=== PATIENT | female | born 1985 | race Asian ===

== ENCOUNTER 2020-05-14 18:49 | Emergency (ER) | payer MEDICAID ==
[~2020-05-14] VITALS: Ht 157.5 cm; Wt 101.8 kg
--- NOTE | 2020-05-14 19:27 | PHYS DOC ---
General Adult EDM: Chief Complaint: HEADACHE HPI: HPI: The history was obtained from the patient. Patient is a 34-year-old female with no reported PMH who presents with a chief complaint of headache. Patient states she is had a constant headache for the past 6 days. She states the headache started gradually. She states that headache is in the front of her head and throbbing in nature. States he had a headache like this once years ago when she was 19. She states he does not have any neck pain. Denies syncope. Denies acute vision or hearing changes. Does nurse photophobia. Denies phonophobia. Denies nausea or vomiting. Denies any weakness or numbness to the extremities. Denies any recent travel. Denies known exposure to coronavirus. Has tried Aleve at home and Excedrin with minimal relief. Denies any current or recent . Patient denies acute onset of headache reaching maximal intensity in under one hour. This is neither the worst headache that Patient has ever experienced, nor was the onset timed with exertional activity or trauma. Patient has not experienced any fever, unusual neck pain or stiffness, syncope, or near syncope. Patient denies numbness, tingling, or weakness of the extremities. Patient also denies personal history of intracranial hemorrhage (including SAH), aneurysm, or AV malformation. Review of Systems: Review of Systems: Constitutional: Denies fever or chills. [] Eyes: Denies change in visual acuity. [] HENT: Denies nasal congestion or sore throat. [] Respiratory: Denies cough or shortness of breath. [] Cardiovascular: Denies chest pain or edema. [] GI: Denies abdominal pain, nausea, vomiting, bloody stools or diarrhea. [] : Denies dysuria. [] Musculoskeletal: Denies back pain or joint pain. [] Integument: Denies rash. [] Neurologic: Positive for headache Endocrine: Denies polyuria or polydipsia. [] Lymphatic: Denies swollen glands. [] Psychiatric: Denies depression or anxiety. [] Heart Score: Risk Factors: Risk Factors: DM, Current or recent (<one month) smoker, HTN, HLP, family history of CAD, obesity. Risk Scores: Score 0 - 3: 2.5% MACE over next 6 weeks - Discharge Home Score 4 - 6: 20.3% MACE over next 6 weeks - Admit for Clinical Observation Score 7 - 10: 72.7% MACE over next 6 weeks - Early Invasive Strategies Allergies: Allergies: Allergies Coded Allergies Type Severity Reaction Last Updated Verified No Known Drug Allergies 05/14/20 No Physical Exam: PE: Constitutional: Well developed, well nourished, no acute distress, non-toxic appearance. [] HENT: Normocephalic, atraumatic, bilateral external ears normal, oropharynx moist, no oral exudates, nose normal. [] Eyes: PERRLA, EOMI, conjunctiva normal, no discharge. [] Neck: Normal range of motion, no tenderness, supple, no stridor. [] Cardiovascular:Heart rate regular rhythm, no murmur [] Lungs & Thorax: Bilateral breath sounds clear to auscultation [] Abdomen: soft, no tenderness, no masses, no pulsatile masses. [] Skin: Warm, dry, no erythema, no rash. [] Back: No tenderness, no CVA tenderness. [] Extremities: No tenderness, no cyanosis, no clubbing, ROM intact, no edema. [] Neurologic: Alert with intact cognitive function. No aphasia, dysarthria, or neglect. GCS 15. Pupils 3 mm briskly reactive b/l. No APD present. Cranial nerves 2-12 grossly intact; no facial asymmetry present, tongue midline, shoulder shrugging strength intact. Strength 5/5 and symmetric throughout. Light touch sensation intact throughout. Cerebellar testing appropriate without evidence of dysdiadochokinesia. DTR's 2+ in all 4 extremities. Negative pronator drift bilaterally. Gait normal Psychologic: Affect normal, judgement normal, mood normal. [] Current Patient Data: Labs: Laboratory Tests Test 05/14/20 19:24 05/14/20 19:53 Bedside Urine HCG, Qualitative Hcg negative White Blood Count 12.0 x10^3/uL Red Blood Count 4.81 x10^6/uL Hemoglobin 13.3 g/dL Hematocrit 39.9 % Mean Corpuscular Volume 83 fL Mean Corpuscular Hemoglobin 28 pg Mean Corpuscular Hemoglobin Concent 33 g/dL Red Cell Distribution Width 14.0 % Platelet Count 264 x10^3/uL Neutrophils (%) (Auto) 77 % Lymphocytes (%) (Auto) 12 % Monocytes (%) (Auto) 8 % Eosinophils (%) (Auto) 1 % Basophils (%) (Auto) 1 % Neutrophils # (Auto) 9.2 x10^3/uL Lymphocytes # (Auto) 1.5 x10^3/uL Monocytes # (Auto) 1.0 x10^3/uL Eosinophils # (Auto) 0.1 x10^3/uL Basophils # (Auto) 0.1 x10^3/uL Sodium Level 139 mmol/L Potassium Level 3.5 mmol/L Chloride Level 104 mmol/L Carbon Dioxide Level 28 mmol/L Anion Gap 7 Blood Urea Nitrogen 13 mg/dL Creatinine 0.8 mg/dL Estimated GFR (Cockcroft-Gault) 83.1 Glucose Level 104 mg/dL Calcium Level 8.5 mg/dL Current Medications Medications (Trade) Dose Ordered Sig/Michael Route PRN Reason Start Time Stop Time Status Last Admin Dose Admin Sodium Chloride 1,000 ml @ 1,000 mls/hr 1X ONCE IV 05/14/20 20:00 05/14/20 20:59 DC 05/14/20 19:52 Diphenhydramine HCl (Benadryl) 50 mg 1X ONCE IVP 05/14/20 20:00 05/14/20 20:01 DC 05/14/20 19:52 Metoclopramide HCl (Reglan Vial) 10 mg 1X ONCE IVP 05/14/20 19:30 05/14/20 19:31 DC 05/14/20 19:51 EKG: EKG: [] Radiology/Procedures: Radiology/Procedures: [][facility] [address] [place], [place] [id number] IMAGING REPORT Signed PATIENT: BEVERLY GARCÍA ACCOUNT: [id number] : 1985 LOCATION: ER AGE: 34 SEX: F EXAM STATUS: PRE ER ORD. PHYSICIAN: MAGO MAO DO REASON: headache PROCEDURE: CT HEAD WO CONTRAST Examination: CT HEAD WO CONTRAST History: Reason: headache Comparison/Correlation: None Findings: Axial images of the head were obtained without contrast. Coronal reformatted images provided. Lateral ventricles are small in size but symmetric. Normal stein-white matter differentiation. No intracranial hemorrhage, midline shift, or mass effect. Bony structures are unremarkable. Orbits are unremarkable. Impression: No suspicious process. Electronically signed by: Ulisses Granados MD (05/14/2020 8:06 PM) [facility] DICTATED and SIGNED BY: ULISSES GRANADOS MD DATE: 05/14/202005 Course & Med Decision Making: Course & Med Decision Making Pertinent Labs and Imaging studies reviewed. (See chart for details) [] Patient is a 34-year-old female presents with chief complaint of headache for the past several days. Initial vital signs unremarkable. Physical exam overall reassuring. Basic labs obtained unremarkable. CT imaging negative. Patient was given migraine medication and states she feels significantly better. She does note a history of previous migraines. On repeat examination her neurologic exam remained stable. Her vital signs remain stable including afebri le. She continues to have full range of motion of her head and neck without difficulty. Given the duration of her headache and because of my concern for possible subarachnoid hemorrhage and meningitis, I recommended that the patient allow us to perform a lumbar puncture (LP). We discussed the procedure itself, in addition to the risks and benefits of performing, as well as the risks of not performing an LP. Any and all questions were answered. Patient understands that I cannot exclude these entities without analysis of the patient's CSF and patient also understands that delay/failure to diagnose these entities could result in serious harm and possibly even . Despite this, the patient is still declining to have the LP performed. Patient appears to be clinically competent and has capacity to make this decision. As such, we treated the patient symptomatically and recommended outpatient management with a either a PCP or a neurologist, in the next 1-2 days. Patient is to return to our ED immediately if they change their mind, or if there is any worsening of their condition (especially if increasing pain, persistant vomiting, stroke-like symptoms, weakness, fever, paralysis, etc.). After my independent evaluation, my clinical opinion at this time is that they are stable for discharge. Yokasta Disclaimer: Yokasta Disclaimer: This electronic medical record was generated, in whole or in part, using a voice recognition dictation system. Departure Departure Impression: Primary Impression: Headache Qualified Codes: R51 - Headache Disposition: 01 HOME, SELF-CARE Condition: STABLE Patient Instructions: Migraine Headache Additional Instructions: Please follow-up with your primary care physician in the next 2 to 3 days. [facility] [address] [place] [address] [facility] [address] [place] [address] [facility] [address] [facility] [place] [address] [facility] [address] [place] [address] [facility] [address] [place] [address] [facility] [address] [place] [address] [facility] [address] [place] [address] [facility] [address] [place] [address] [facility] [address] [place] [address] [facility] [address] [place] [address] Justicifation of Admission Dx: Justifications for Admission: Justification of Admission Dx: N/A MAGO MAO DO May 14, 2020 19:26
[2020-05-14] MEDS ORDERED: METOCLOPRAMIDE HCL 10 MG/2 ML VIAL. IVP ONE (19:30)
[2020-05-14] MEDS ORDERED: IV NORMAL SALINE 1000ML BAG 1,000 ML IV ONE (20:00)
[2020-05-14] MEDS ORDERED: diphenhydrAMINE 50 MG/ML VIAL IVP ONE (20:00)
--- NOTE | 2020-05-14 20:08 | RAD ---
Examination: CT HEAD WO CONTRAST History: Reason: headache Comparison/Correlation: None Findings: Axial images of the head were obtained without contrast. Coronal reformatted images provided. Lateral ventricles are small in size but symmetric. Normal stein-white matter differentiation. No intracranial hemorrhage, midline shift, or mass effect. Bony structures are unremarkable. Orbits are unremarkable. Impression: No suspicious process. Electronically signed by: Ulisses Tom MD (05/14/2020 8:06 PM) [facility]
[2020-05-14 20:14] LABS: BASO # 0.1 x10^3/uL (0.0-0.2); BASO % 1 % (0-3); EOS # 0.1 x10^3/uL (0.0-0.7); EOS % 1 % (0-3); HEMATOCRIT 39.9 % (36.0-47.0); HEMOGLOBIN 13.3 g/dL (12.0-15.5); LYMPH # 1.5 x10^3/uL (1.0-4.8); LYMPH % 12 % (24-48); MEAN CORPUSCULAR HEMOGLOBIN 28 pg (25-35); MEAN CORPUSCULAR HGB CONC 33 g/dL (31-37); MEAN CORPUSCULAR VOLUME 83 fL (79-100); MONO % 8 % (0-9); NEUT # 9.2 x10^3/uL (1.8-7.7); NEUT % 77 % (31-73); PLATELET COUNT 264 x10^3/uL (140-400); RED BLOOD COUNT 4.81 x10^6/uL (3.50-5.40)
[2020-05-14 20:24] LABS: CALCIUM 8.5 mg/dL (8.5-10.1); CREATININE 0.8 mg/dL (0.6-1.0); GFR 83.1; POTASSIUM 3.5 mmol/L (3.5-5.1)
[2020-05-14 21:00] VITALS: BP 95/62
== END 2020-05-14 21:48 | disposition home or self-care (01) ==
LOC: ER 18:49
DX: R51 Headache (principal)
CPT/HCPCS: 36415; 70450; 80048; 81025; 85025; 96361; 96374; 96375; 99284; J1200; J2765; J7030

== ENCOUNTER 2020-05-18 08:57 | Emergency (ER) | payer MEDICAID ==
[~2020-05-18] VITALS: Ht 157.5 cm; Wt 101.8 kg
[2020-05-18] MEDS ORDERED: IV NORMAL SALINE 1000ML BAG 1,000 ML IV ONE (10:00)
[2020-05-18] MEDS ORDERED: PROCHLORPERAZINE 10 MG/2 ML VIAL. IV ONE (10:00)
[2020-05-18] MEDS ORDERED: DEXAMETHASONE SOD PHOS 4 MG/ML VIAL IVP ONE (10:00)
[2020-05-18] MEDS ORDERED: diphenhydrAMINE HCL 25 MG CAPSULE PO ONE (10:00)
[2020-05-18] MEDS ORDERED: diphenhydrAMINE 50 MG/ML VIAL IVP ONE (10:30)
[2020-05-18 12:30] VITALS: BP 107/65
--- NOTE | 2020-05-18 12:35 | PHYS DOC ---
Past Medical History Past Medical History: No Pertinent History Past Surgical History: No Surgical History Smoking Status: Never Smoker Alcohol Use: None General Adult EDM: Chief Complaint: HEADACHE HPI: HPI: Patient is a 34-year-old female who presents to the emergency room complaining of a frontal headache that has been ongoing for the last 10 days. She was seen here 4 days prior to this for the same symptoms. At that time she turned down a lumbar puncture to rule out a subarachnoid hemorrhage. Patient states she initially felt slightly better after being seen here but then her headache came back and was just as bad as before. She is unable to take care of herself due to severe headache. states that she went through something very similar to this exactly a year ago that then just went away on its own. She has not had any fever or neck stiffness. She does get difficulty with walking, nausea, vomiting. She has been taking ibuprofen with relief. Review of Systems: Review of Systems: General: Denies fever, chills, sweats, fatigue Eyes: Denies drainage, blurred vision, eye redness HENT: Denies rhinorrhea, sore throat, earache Respiratory: Denies cough, shortness of breath, wheezing Cardiac: Denies edema, palpitations, chest pain GI: Denies abdominal pain. Reports nausea, vomiting MSK: Denies back pain, neck pain Skin: Denies rash, jaundice Neuro: Reports reports headache, dizziness Psychiatric: Denies SI/HI Heart Score: Risk Factors: Risk Factors: DM, Current or recent (<one month) smoker, HTN, HLP, family history of CAD, obesity. Risk Scores: Score 0 - 3: 2.5% MACE over next 6 weeks - Discharge Home Score 4 - 6: 20.3% MACE over next 6 weeks - Admit for Clinical Observation Score 7 - 10: 72.7% MACE over next 6 weeks - Early Invasive Strategies Current Medications: Current Medications Medications (Trade) Dose Ordered Sig/Michael Start Time Stop Time Status Last Admin Dose Admin Dexamethasone Sodium Phosphate (Decadron) 10 mg 1X ONCE 05/18/20 10:00 05/18/20 10:01 DC 05/18/20 10:12 10 MG Diphenhydramine HCl (Benadryl) 25 mg 1X ONCE 05/18/20 10:30 05/18/20 10:33 DC 05/18/20 10:56 25 MG Prochlorperazine Edisylate (Compazine) 10 mg 1X ONCE 05/18/20 10:00 05/18/20 10:01 DC 05/18/20 10:10 10 MG Sodium Chloride 1,000 ml @ 30 mls/hr Q24H ONCE 05/18/20 10:00 05/19/20 09:59 05/18/20 10:13 1,000 MLS/HR Allergies: Allergies: Allergies Coded Allergies Type Severity Reaction Last Updated Verified No Known Drug Allergies 05/14/20 No Physical Exam: PE: General: Awake, alert, NAD. Well Nourished, well hydrated. Cooperative HEENT: Atraumatic, EOMI, PERRL, airway patent, moist oral mucosa Neck: Supple, trachea midline Respiratory: CTA bilaterally, normal effort, no wheezing/crackles CV: RRR, no murmur, cap refill <2 GI: Soft, nondistended, nontender, no masses MSK: No obvious deformities Skin: Warm, dry, intact Neuro: A&O x3, speech NL, sensory and motor grossly intact, no focal deficits Psych: Normal affect, normal mood, not suicidal or homicidal Current Patient Data: Vital Signs: Vital Signs Date Time Temp Pulse Resp B/P (MAP) Pulse Ox O2 Delivery O2 Flow Rate FiO2 05/18/20 09:05 98.1 69 10 115/56 (75) 98 Room Air 98.1 EKG: EKG: [] Radiology/Procedures: Radiology/Procedures: [] Course & Med Decision Making: Course & Med Decision Making Pertinent Labs and Imaging studies reviewed. (See chart for details) Patient is a 34-year-old female who presents the emergency room complaining of headache for the last 10 days. The last time patient was here she had a CT scan and lab work that was done that was normal. She had a similar headache a year ago. It is possible that she either has migraines or cluster headaches. She does not have any focal neurologic deficits. She does not have any fever or neck stiffness that would be suggestive of meningitis or encephalitis. Patient was given a migraine cocktail and had complete resolution of her headache. She was given Decadron to prevent rebound headaches. We discussed rebound headaches with repetitive ibuprofen use. I have recommended that she follow-up with Dr. Gee. Patient's test results and vitals while in the ED were fully reviewed and discussed with the patient. Patient is stable and at this time does not need admission to the hospital. We have discussed strict return precautions and the importance of following up with their Primary Care Physician. Patient stated understanding and was given an opportunity to ask any questions. Patient is in agreement with plan. Dragon Disclaimer: Dragon Disclaimer: This electronic medical record was generated, in whole or in part, using a voice recognition dictation system. Departure Departure Impression: Primary Impression: Headache Disposition: 01 HOME, SELF-CARE Condition: IMPROVED Referrals: ANDREE SANCHEZ APRN (PCP) Patient Instructions: Cluster Headache, General Headache Without Cause Scripts Butalb/Acetaminophen/Caffeine ([id number] [id number]) 1 Each Tablet 1 EACH PO Q12HR PRN for HEADACHE, #6 TAB Prov: DUSTY DANIEL MD 05/18/20 Justicifation of Admission Dx: Justifications for Admission: Justification of Admission Dx: N/A DUSTY DANIEL MD May 18, 2020 12:35
[2020-05-18] MEDS ORDERED: BUTA1TAB23 PO (12:53)
== END 2020-05-18 13:25 | disposition home or self-care (01) ==
LOC: ER 08:57
DX: R51 Headache (principal); R11.2 Nausea with vomiting, unspecified
CPT/HCPCS: 96374; 96375; 99285; J0780; J1100; J1200; J7030; Q0163